=== PATIENT | female | born 1965 | race Two or more races ===

== ENCOUNTER 2024-11-24 10:32 | Emergency (ER) | payer OTHER ==
[~2024-11-24] VITALS: Ht 170.2 cm; Wt 95.3 kg
[2024-11-24] MEDS ORDERED: LOSARTAN POTAS100 MG (11:27)
[2024-11-24] MEDS ORDERED: ROSUVASTATIN CA40 MG (11:27)
[2024-11-24] MEDS ORDERED: AMLODIPINE BESYL5 MG (11:27)
[2024-11-24] MEDS ORDERED: CEFTRIAXONE SODIUM 1,000 MG VIAL IM ONE (12:30)
[2024-11-24] MEDS ORDERED: KETOROLAC TROMETHAMINE 60 MG VIAL IM ONE ×2 (12:30→12:35)
[2024-11-24] MEDS ORDERED: BENZONATATE 200 MG CAPSULE PO ONE (12:30)
[2024-11-24] MEDS ORDERED: LEVALBUTEROL HCL 1.25 MG/3 ML SOLUTION IH ONE ×2 (12:30→13:18)
[2024-11-24] MEDS ORDERED: CEFTRIAXONE SODIUM 1,000 MG VIAL ONE (12:35)
[2024-11-24 13:31] LABS: HEMATOCRIT 38.7 % (36.0-45.00); HEMOGLOBIN 12.6 g/dL (12.0-15.00); MEAN CELL VOLUME 86.3 fL (80.00-100.00); MEAN CORPUSCULAR HEMOGLOBIN 28.1 pg (27.00-32.0); MEAN CORPUSCULAR HGB CONC 32.6 g/dl (32.0-36.0); PLATELET COUNT 199 K/uL (150-450); RED BLOOD COUNT 4.49 M/uL (4.00-6.00); RED CELL DISTRIBUTION WIDTH 14.3 % (11.5-14.5)
[2024-11-24] MEDS ORDERED: MEDROLPACK PO (14:07)
[2024-11-24] MEDS ORDERED: PEPCID AC20 MG PO (14:07)
[2024-11-24] MEDS ORDERED: LEVALBUTER0.63 MG/3 IH (14:07)
[2024-11-24] MEDS ORDERED: BENZONATATE200 M1 PO (14:07)
[2024-11-24] MEDS ORDERED: ZITHROMAX500 MG PO (14:07)
[2024-11-24] MEDS ORDERED: SINGULAIR10 MG PO (14:10)
== END 2024-11-24 14:27 | disposition home or self-care (01) ==
LOC: ER 10:35
PROVIDERS: General Practice
DX: J00 Acute nasopharyngitis [common cold] (principal); M19.90 Unspecified osteoarthritis, unspecified site; I10 Essential (primary) hypertension; E11.9 Type 2 diabetes mellitus without complications; Z20.822 Contact with and (suspected) exposure to COVID-19
CPT/HCPCS: 36415; 94640; 96372; 99283; J0696 ×2; J1885